=== PATIENT | female | born 2000 | race Caucasian/White ===

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

== ENCOUNTER 2020-03-21 13:03 | Outpatient (CLI) | payer OTHER ==
[2020-03-21 14:29] LABS: APPEARANCE,URINE CLOUDY; BILIRUBIN,URINE NEGATIVE (NEGATIVE); COLOR,URINE YELLOW; GLUCOSE, URINE NEGATIVE (NEGATIVE); KETONES,URINE NEGATIVE (NEGATIVE); LEUKOCYTE ESTERASE,URINE LARGE (NEGATIVE); NITRITE,URINE NEGATIVE (NEGATIVE); PROTEIN,URINE NEGATIVE (NEGATIVE); URINE SPECIFIC GRAVITY 1.011; UROBILINOGEN,URINE NEGATIVE mg/dL (<2.0)
[2020-03-21 14:46] LABS: URINE AMPHETAMINES SCREEN NEGATIVE; URINE BARBITURATES SCREEN NEGATIVE; URINE BENZODIAZEPINES SCREEN NEGATIVE; URINE COCAINE SCREEN NEGATIVE; URINE MARIJUANA (THC) SCREEN NEGATIVE; URINE METHADONE SCREEN NEGATIVE; URINE PHENCYCLIDINE SCREEN NEGATIVE
[2020-03-21 14:51] LABS: UR PRO/CREAT RATIO RESULT 0.2 mg/mg (0.0-0.2); URINE PROTEIN 13.6 mg/dL (<12)
[2020-03-21 15:05] LABS: ABSOLUTE BASOPHILS # (AUTO) 0.1 10^3/uL (0.0-0.2); ABSOLUTE EOSINOPHILS # (AUTO) 0.1 10^3/uL (0.0-0.6); ABSOLUTE LYMPHOCYTES (AUTO) 2.5 10^3/uL (0.5-4.7); ABSOLUTE MONOCYTES (AUTO) 1.1 10^3/uL (0.1-1.4); BASOPHILS % (AUTO) 0.7 % (0-2); EOSINOPHILS % (AUTO) 0.6 % (0-6); LYMPHOCYTES % (AUTO) 15.6 % (13-45); MEAN CORPUSCULAR HEMOGLOBIN 28.8 pg (27.0-33.4); MEAN CORPUSCULAR HGB CONC 34.3 g/dL (32.0-36.0); MEAN CORPUSCULAR VOLUME 84 fl (80-97); MONOCYTES % (AUTO) 6.9 % (3-13); PLATELET COUNT 273 10^3/uL (150-450); RED BLOOD COUNT 4.17 10^6/uL (3.72-5.28); RED CELL DISTRIBUTION WIDTH 13.3 % (11.5-14.0); SEGMENTED NEUTROPHILS % (AUTO) 76.2 % (42-78); TOTAL CELLS COUNTED % (AUTO) 100 %; WHITE BLOOD COUNT 15.8 10^3/uL (4.0-10.5)
[2020-03-21 15:21] LABS: ALBUMIN 3.6 g/dL (3.5-5.0); ALKALINE PHOSPHATASE 77 U/L (38-126); ANION GAP 8 (5-19); ASPARTATE AMINO TRANSFERASE 14 U/L (14-36); BILIRUBIN,DIRECT 0.2 mg/dL (0.0-0.4); BILIRUBIN,TOTAL 0.3 mg/dL (0.2-1.3); BLOOD UREA NITROGEN 6 mg/dL (7-20); CALCIUM 9.2 mg/dL (8.4-10.2); CARBON DIOXIDE 23 mmol/L (22-30); CHLORIDE 105 mmol/L (98-107); GLUCOSE 73 mg/dL (75-110); POTASSIUM 4.7 mmol/L (3.6-5.0); TOTAL PROTEIN 6.4 g/dL (6.3-8.2); URIC ACID 4.7 mg/dL (2.5-6.2)
== END 2020-03-21 16:25 | disposition home or self-care (01) ==
LOC: LC 13:03
PROVIDERS: ATTEND Obstetrics & Gynecology
DX: O16.2 Unspecified maternal hypertension, second trimester (principal); Z3A.22 22 weeks gestation of pregnancy
CPT/HCPCS: 36415; 80053; 80307; 81001; 82570; 83615; 84156; 84550; 85025

== ENCOUNTER 2020-04-12 14:04 | Outpatient (CLI) | payer OTHER ==
[2020-04-12 14:49] LABS: APPEARANCE,URINE TURBID; BILIRUBIN,URINE NEGATIVE (NEGATIVE); CALCIUM OXALATE CRYSTALS,URINE TOO NUMEROUS TO CNT /HPF; COLOR,URINE AMBER; GLUCOSE, URINE 50 mg/dL (NEGATIVE); KETONES,URINE TRACE mg/dL (NEGATIVE); LEUKOCYTE ESTERASE,URINE LARGE (NEGATIVE); NITRITE,URINE NEGATIVE (NEGATIVE); PROTEIN,URINE 100 mg/dL (NEGATIVE); URINE SPECIFIC GRAVITY 1.029
[2020-04-12 15:03] LABS: URINE AMPHETAMINES SCREEN NEGATIVE; URINE BARBITURATES SCREEN NEGATIVE; URINE BENZODIAZEPINES SCREEN NEGATIVE; URINE COCAINE SCREEN NEGATIVE; URINE MARIJUANA (THC) SCREEN NEGATIVE; URINE METHADONE SCREEN NEGATIVE; URINE PHENCYCLIDINE SCREEN NEGATIVE
[2020-04-12] MEDS ORDERED: NORMAL SALINE 1000 ML 1,000 ML IV PRN (15:20)
[2020-04-12] MEDS ORDERED: NITROFURANTOIN MONOHYD/M-CRYST 100 MG CAPSULE PO ONE (15:28)
[2020-04-12] MEDS ORDERED: CEFTRIAXONE 2 GM/D5W RTU 2 GM/50 ML RTUPB IV SCH (15:30)
[2020-04-12] MEDS ORDERED: NITROFURANTOIN MONOHYD/M-CRYST 100 MG CAPSULE ONE (16:23)
--- NOTE | 2020-04-12 17:51 | RADIOLOGY REPORT (SQ) ---
EXAM DESCRIPTION: U/S OB LIMITED IMAGES COMPLETED DATE/TIME: 04/12/2020 2:32 pm REASON FOR STUDY: abdominal cramping COMPARISON: None. TECHNIQUE: Limited transabdominal grayscale ultrasound for evaluation of specific requested obstetri cinthia parameters. LIMITATIONS: None. FINDINGS: CERVICAL LENGTH: At least 4.1 cm Closed. ALBA: 21.6 cm. FHR: 132 beats per minute. PRESENTATION: Cephalic. PLACENTA: The placenta has normal homogeneous appearance and normal thickness measuring about 3.5 cm in thickness. The retro placental vascularity is within normal limits. No retroplacental fluid or h ematoma. ANATOMY: Not assessed OTHER: No other significant findings. IMPRESSION: Live intrauterine . Trimester of : 25 weeks 2 days based on clinical dates. TECHNICAL DOCUMENTATION: JOB ID: [id number] 2010 [employer]- All Rights Reserved Reading location - IP/workstation name: [email or web address]
== END 2020-04-12 17:15 | disposition home or self-care (01) ==
LOC: LC 14:04
PROVIDERS: ATTEND Obstetrics & Gynecology
DX: O23.42 Unspecified infection of urinary tract in pregnancy, second trimester (principal); O99.282 Endocrine, nutritional and metabolic diseases complicating pregnancy, second trimester; E86.0 Dehydration; O09.522 Supervision of elderly multigravida, second trimester; Z3A.25 25 weeks gestation of pregnancy; Z88.0 Allergy status to penicillin
CPT/HCPCS: 59899; 81001; 80307; 76815; J8499; 87086

== ENCOUNTER 2020-06-11 13:54 | Observation (INO) | payer OTHER ==
[2020-06-11] MEDS ORDERED: RINGERS SOLUTION,LACTATED 1,000 ML IV PRN (14:12)
[2020-06-11] MEDS ORDERED: CEFTRIAXONE INJ 1000 MG VIAL IV ONE (14:12)
[2020-06-11] MEDS ORDERED: CEFTRIAXONE INJ 1000 MG VIAL ONE (14:17)
[2020-06-11] MEDS ORDERED: MORPHINE SULFATE 10 MG/ML INJ ONE (15:06)
[2020-06-11] MEDS ORDERED: MORPHINE SULFATE 10 MG/ML INJ IV ONE (15:08)
[2020-06-11 15:11] LABS: APPEARANCE,URINE CLOUDY; BILIRUBIN,URINE NEGATIVE (NEGATIVE); COLOR,URINE YELLOW; GLUCOSE, URINE NEGATIVE (NEGATIVE); KETONES,URINE TRACE mg/dL (NEGATIVE); LEUKOCYTE ESTERASE,URINE LARGE (NEGATIVE); NITRITE,URINE NEGATIVE (NEGATIVE); PROTEIN,URINE 30 mg/dL (NEGATIVE); URINE AMPHETAMINES SCREEN NEGATIVE; URINE BARBITURATES SCREEN NEGATIVE; URINE BENZODIAZEPINES SCREEN NEGATIVE; URINE COCAINE SCREEN NEGATIVE; URINE MARIJUANA (THC) SCREEN NEGATIVE; URINE METHADONE SCREEN NEGATIVE; URINE PHENCYCLIDINE SCREEN NEGATIVE; URINE SPECIFIC GRAVITY 1.016; UROBILINOGEN,URINE NEGATIVE mg/dL (<2.0)
[2020-06-11 15:16] LABS: ABSOLUTE LYMPHOCYTES (AUTO) 2.6 10^3/uL (0.5-4.7); ABSOLUTE MONOCYTES (AUTO) 1.3 10^3/uL (0.1-1.4); ABSOLUTE NEUT (AUTO) 15.1 10^3/uL (1.7-8.2); BASOPHILS % (AUTO) 0.1 % (0-2); EOSINOPHILS % (AUTO) 0.2 % (0-6); HEMATOCRIT 35.3 % (36.0-47.0); HEMOGLOBIN 11.6 g/dL (12.0-15.5); LYMPHOCYTES % (AUTO) 13.4 % (13-45); MEAN CORPUSCULAR HEMOGLOBIN 24.9 pg (27.0-33.4); MEAN CORPUSCULAR HGB CONC 32.7 g/dL (32.0-36.0); MEAN CORPUSCULAR VOLUME 76 fl (80-97); PLATELET COUNT 244 10^3/uL (150-450); RED BLOOD COUNT 4.64 10^6/uL (3.72-5.28); RED CELL DISTRIBUTION WIDTH 17.1 % (11.5-14.0); SEGMENTED NEUTROPHILS % (AUTO) 79.3 % (42-78); TOTAL CELLS COUNTED % (AUTO) 100 %; WHITE BLOOD COUNT 19.1 10^3/uL (4.0-10.5)
[2020-06-11 15:41] LABS: ALBUMIN 3.4 g/dL (3.5-5.0); ALKALINE PHOSPHATASE 136 U/L (38-126); ANION GAP 9 (5-19); ASPARTATE AMINO TRANSFERASE 15 U/L (14-36); BILIRUBIN,TOTAL 0.2 mg/dL (0.2-1.3); BLOOD UREA NITROGEN 8 mg/dL (7-20); CALCIUM 8.9 mg/dL (8.4-10.2); CARBON DIOXIDE 20 mmol/L (22-30); CHLORIDE 105 mmol/L (98-107); GLUCOSE 83 mg/dL (75-110); POTASSIUM 4.3 mmol/L (3.6-5.0); TOTAL PROTEIN 6.4 g/dL (6.3-8.2)
[2020-06-11] MEDS ORDERED: OXYCODONE-ACETAMINOPHEN 5-325 MG TABLET ONE (16:02)
[2020-06-11] MEDS: OXYCODONE-ACETAMINOPHEN 5-325 MG TABLET PO PRN ×2 (16:10→20:28)
[2020-06-11] MEDS ORDERED: ONDANSETRON HCL INJ/PF 4 MG/2 ML SDV ONE (16:47)
[2020-06-11] MEDS: RINGERS SOLUTION,LACTATED 1,000 ML IV PRN (16:53)
--- NOTE | 2020-06-11 16:54 | RADIOLOGY REPORT (SQ) ---
EXAM DESCRIPTION: U/S RETROPERITON (RENAL/AORTA) IMAGES COMPLETED DATE/TIME: 06/11/2020 4:10 pm REASON FOR STUDY: Low back pain radiating to ribs. COMPARISON: None. TECHNIQUE: Dynamic and static grayscale images acquired of the kidneys and bladder and recorded on P ACS. Additional selected color Doppler and spectral images recorded. LIMITATIONS: None. FINDINGS: RIGHT KIDNEY: Normal size. Normal echogenicity. No solid or suspicious masses. No calcifi cations. LEFT KIDNEY: Normal size. Normal echogenicity. No solid or suspicious masses. No calcifications. BLADDER: No masses. OTHER FINDINGS: Mild prominence of the renal pelves and proximal ureters is not entirely unexpected i n the setting of 33 week gestation. Focused evaluation of the uterine contents demonstrates a single live intrauterine gestation with heart motion measured on M-mode sonography at 0100 hours 55 beats per minute. IMPRESSION: Essentially normal renal ultrasound in the setting of 33 week gestation. TECHNICAL DOCUMENTATION: JOB ID: [id number] 2010 [employer]- All Rights Reserved Reading location - IP/workstation name: [email or web address]
[2020-06-12] MEDS: ONDANSETRON HCL INJ/PF 4 MG/2 ML SDV IV PRN ×3 (00:46→20:54)
[2020-06-12] MEDS: RINGERS SOLUTION,LACTATED 1,000 ML IV PRN (00:46)
[2020-06-12] MEDS: ACETAMINOPHEN 325 MG TABLET PO PRN ×3 (00:50→17:04)
[2020-06-12] MEDS: CEFTRIAXONE 1 GM/D5W RTU 1 GM/50 ML RTUPB IV SCH ×3 (02:33→23:23)
[2020-06-12] MEDS ORDERED: CEFTRIAXONE INJ 1000 MG VIAL IV SCH (03:00)
[2020-06-12] MEDS ORDERED: LEVOTHYROXINE SODIUM 0.05 MG TABLET ONE (05:06)
[2020-06-12] MEDS ORDERED: LEVOTHYROXINE SODIUM 0.05 MG TABLET PO ONE (06:00)
[2020-06-12] MEDS ORDERED: SERTRALINE HCL 50 MG TABLET PO ONE (10:00)
[2020-06-12] MEDS ORDERED: HYDROMORPHONE HCL INJ/PF 2 MG/ML AMPULE IV ONE ×2 (10:53→20:00)
--- NOTE | 2020-06-12 11:01 | PDOC PROGRESS REPORT ---
Subjective Date:: 06/12/20 Subjective:: She continues to report pain in the right flank. Reason For Visit: Physical Exam - Physical Exam Vital Signs: Temp Pulse Resp BP Pulse Ox 97.9 F 71 17 118/52 L 100 06/12/20 07:33 06/12/20 07:33 06/12/20 07:33 06/12/20 07:33 06/12/20 07:33 Intake & Output 06/11/20 06/12/20 06/13/20 06:59 06:59 06:59 Intake Total 2535 Output Total 1250 300 Balance 1285 -300 Weight 96.9 kg General appearance: PRESENT: mild distress Head exam: PRESENT: atraumatic Pulses: PRESENT: normal dorsalis pedis pul, +2 pedal pulses bilateral Vascular exam: PRESENT: normal capillary refill GI/Abdominal exam: PRESENT: other - gravid Extremities exam: PRESENT: full ROM. ABSENT: calf tenderness, clubbing, pedal edema Neurological exam: PRESENT: alert, awake, oriented to person, oriented to place, oriented to time, oriented to situation, CN II-XII grossly intact. ABSENT: motor sensory deficit Result Laboratory Results: 06/11/20 15:02 06/11/20 15:02 06/11/20 06/11/20 06/11/20 14:07 15:02 15:02 WBC 19.1 H RBC 4.64 Hgb 11.6 L Hct 35.3 L MCV 76 L MCH 24.9 L MCHC 32.7 RDW 17.1 H Plt Count 244 Seg Neutrophils % 79.3 H Sodium 134.1 L Potassium 4.3 Chloride 105 Carbon Dioxide 20 L Anion Gap 9 BUN 8 Creatinine 0.55 Est GFR ( Amer) > 60 Glucose 83 Calcium 8.9 Total Bilirubin 0.2 AST 15 Alkaline Phosphatase 136 H Total Protein 6.4 Albumin 3.4 L Urine Color YELLOW Urine Appearance CLOUDY Urine pH 7.0 Ur Specific [place] 1.016 Urine Protein 30 H Urine Glucose (UA) NEGATIVE Urine Ketones TRACE H Urine Blood NEGATIVE Urine Nitrite NEGATIVE Ur Leukocyte Esterase LARGE H Urine WBC (Auto) 52 Urine RBC (Auto) 2 Impressions: Renal Ultrasound 06/11/20 15:05 IMPRESSION: Essentially normal renal ultrasound in the setting of 33 week gestation. Assessment & Plan - Diagnosis (1) Acute cystitis during in third trimester Is this a current diagnosis for this admission?: Yes (2) Cystitis during in second trimester, antepartum Is this a current diagnosis for this admission?: No - Time Time Spent with patient: 15-24 minutes Medications reviewed and adjusted accordingly: Yes Anticipated discharge: Home Anticipated DC Timeframe: within 72 hours - Plan Summary Plan Summary: Plan to continue abx and IV fluids. Urine culture ordered.
[2020-06-12] MEDS: ACETAMINOPHEN WITH CODEINE #3 TABLET PO PRN (23:51)
[2020-06-13] MEDS: RINGERS SOLUTION,LACTATED 1,000 ML IV PRN ×2 (02:57→22:08)
[2020-06-13] MEDS: ACETAMINOPHEN WITH CODEINE #3 TABLET PO PRN ×4 (06:37→22:54)
[2020-06-13] MEDS: ONDANSETRON HCL INJ/PF 4 MG/2 ML SDV IV PRN (06:38)
[2020-06-13 09:01] LABS: ABSOLUTE LYMPHOCYTES (AUTO) 1.8 10^3/uL (0.5-4.7); ABSOLUTE MONOCYTES (AUTO) 1.7 10^3/uL (0.1-1.4); ABSOLUTE NEUT (AUTO) 12.5 10^3/uL (1.7-8.2); BASOPHILS % (AUTO) 0.2 % (0-2); EOSINOPHILS % (AUTO) 0.1 % (0-6); HEMATOCRIT 31.5 % (36.0-47.0); HEMOGLOBIN 10.3 g/dL (12.0-15.5); LYMPHOCYTES % (AUTO) 11.1 % (13-45); MEAN CORPUSCULAR HEMOGLOBIN 24.9 pg (27.0-33.4); MEAN CORPUSCULAR HGB CONC 32.7 g/dL (32.0-36.0); MEAN CORPUSCULAR VOLUME 76 fl (80-97); MONOCYTES % (AUTO) 10.6 % (3-13); PLATELET COUNT 207 10^3/uL (150-450); RED BLOOD COUNT 4.14 10^6/uL (3.72-5.28); RED CELL DISTRIBUTION WIDTH 17.1 % (11.5-14.0); TOTAL CELLS COUNTED % (AUTO) 100 %
[2020-06-13] MEDS: CEFTRIAXONE 1 GM/D5W RTU 1 GM/50 ML RTUPB IV SCH ×2 (09:06→22:15)
[2020-06-13] MEDS ORDERED: HYDROMORPHONE HCL INJ/PF 2 MG/ML AMPULE IV ONE (12:30)
[2020-06-13] MEDS ORDERED: HYDROMORPHONE HCL INJ/PF 2 MG/ML AMPULE ONE (14:40)
[2020-06-14] MEDS: ACETAMINOPHEN WITH CODEINE #3 TABLET PO PRN ×2 (02:58→07:41)
--- NOTE | 2020-06-14 07:35 | PDOC PROGRESS REPORT ---
Subjective Date:: 06/13/20 Subjective:: Late entry for Patient continues to have Right CVA tenderness. States pain radiates around abdomen. Voiding without issue. Denies blood in urine today or passing stones. Denies fever, chills, nausea or vomiting Reason For Visit: Physical Exam - Physical Exam Vital Signs: Temp Pulse Resp BP Pulse Ox 98.3 F 100 16 117/76 98 06/14/20 03:05 06/14/20 03:05 06/14/20 03:05 06/14/20 03:05 06/14/20 03:05 Intake & Output 06/13/20 06/14/20 06/15/20 06:59 06:59 06:59 Intake Total 1999 1700 Output Total 300 3650 Balance 1700 -1950 General appearance: PRESENT: no acute distress, cooperative Respiratory exam: PRESENT: clear to auscultation bradly Cardiovascular exam: PRESENT: RRR, +S1, +S2 GI/Abdominal exam: PRESENT: soft - Right CVA tenderness Extremities exam: PRESENT: full ROM. ABSENT: calf tenderness, clubbing, pedal edema Neurological exam: PRESENT: alert, awake, oriented to person, oriented to place, oriented to time, oriented to situation, CN II-XII grossly intact. ABSENT: motor sensory deficit Psychiatric exam: PRESENT: appropriate affect, normal mood. ABSENT: homicidal ideation, suicidal ideation Skin exam: PRESENT: dry, intact, warm. ABSENT: cyanosis, rash Result Laboratory Results: 06/13/20 08:45 06/11/20 15:02 06/13/20 08:45 WBC 16.0 H RBC 4.14 Hgb 10.3 L Hct 31.5 L MCV 76 L MCH 24.9 L MCHC 32.7 RDW 17.1 H Plt Count 207 Seg Neutrophils % 78.0 06/11/20 14:07 Clean Catch Midstream Urine Culture - Final Mixed Urogenital Jessica Impressions: Renal Ultrasound 06/11/20 15:05 IMPRESSION: Essentially normal renal ultrasound in the setting of 33 week gestation. Assessment & Plan - Diagnosis (1) Pyelonephritis of right kidney Is this a current diagnosis for this admission?: Yes - Time Time Spent with patient: Less than 15 minutes Anticipated discharge: Home Anticipated DC Timeframe: within 36 hours - 19 yo with right pyelonephritis in -VSS, afebrile -Urine culture not back yet -Renal US negative -Still with right CVA tenderness -Discussed that need culture results and needs to have no CVA tenderness on exam for discharge. -Good FHT. Continue daily. -Pain medication PRN
[2020-06-14] MEDS: RINGERS SOLUTION,LACTATED 1,000 ML IV PRN (07:42)
--- NOTE | 2020-06-14 08:59 | PDOC DISCHARGE SUMMARY ---
Impression - Admit/DC Date/PCP Admission Date/Primary Care Provider: 06/11/20 16:03 JODY THOMAS MD Discharge Date: 06/14/20 - Discharge Diagnosis (1) Acute cystitis during in third trimester Is this a current diagnosis for this admission?: Yes (2) Pyelonephritis of right kidney Is this a current diagnosis for this admission?: Yes (3) Cystitis during in second trimester, antepartum Is this a current diagnosis for this admission?: Yes (4) Dehydration Is this a current diagnosis for this admission?: Yes - Additional Information Resuscitation Status: Full Code Discharge Diet: As Tolerated Discharge Activity: Activity As Tolerated Referrals: JODY THOMAS MD [Primary Care Provider] - Home Medications: Ferrous Gluconate [Iron] 256 mg PO DAILY 03/21/20 95/Iron Fum/Folic/Dha [ + Dha Combo Pack] 1 each PO DAILY 03/21/20 Sertraline HCl [Zoloft 50 mg Tablet] 50 mg PO DAILY 03/21/20 Vit B Comp C 19/Folic Acid/D3 [Nephronex-Sl Tablet] 1 each PO DAILY 03/21/20 Vit C/Ascorb Sod/Multivit-Min [Emergen-C 500 mg Chewable Tab] 500 mg PO DAILY 03/21/20 Levothyroxine Sodium [Synthroid 0.05 mg Tablet] 1 tab PO DAILY 06/11/20 History of Present Illiness History of Present Illness: BEAU العلي is a 19 year old female admitted with pyelonphritis Hospital Course Hospital Course: placed on IV antibiotics and has been afebrile and no CVA tenderness today. pt feels much better and wants to go home Physical Exam - Physical Exam Vital Signs: Temp Pulse Resp BP Pulse Ox 98.3 F 100 16 117/76 98 06/14/20 03:05 06/14/20 03:05 06/14/20 03:05 06/14/20 03:05 06/14/20 03:05 Intake & Output 06/13/20 06/14/20 06/15/20 06:59 06:59 06:59 Intake Total 1999 2700 Output Total 300 3650 Balance 1700 -950 General appearance: PRESENT: no acute distress Respiratory exam: PRESENT: clear to auscultation bradly Cardiovascular exam: PRESENT: RRR Additional comments: no cva tenderness Results Laboratory Results: WBC 16.0 10^3/uL (4.0-10.5) H 06/13/20 08:45 RBC 4.14 10^6/uL (3.72-5.28) 06/13/20 08:45 Hgb 10.3 g/dL (12.0-15.5) L 06/13/20 08:45 Hct 31.5 % (36.0-47.0) L 06/13/20 08:45 MCV 76 fl (80-97) L 06/13/20 08:45 MCH 24.9 pg (27.0-33.4) L 06/13/20 08:45 MCHC 32.7 g/dL (32.0-36.0) 06/13/20 08:45 RDW 17.1 % (11.5-14.0) H 06/13/20 08:45 Plt Count 207 10^3/uL (150-450) 06/13/20 08:45 Lymph % (Auto) 11.1 % (13-45) L 06/13/20 08:45 [place] % (Auto) 10.6 % (3-13) 06/13/20 08:45 Eos % (Auto) 0.1 % (0-6) 06/13/20 08:45 Baso % (Auto) 0.2 % (0-2) 06/13/20 08:45 Absolute Neuts (auto) 12.5 10^3/uL (1.7-8.2) H 06/13/20 08:45 Absolute Lymphs (auto) 1.8 10^3/uL (0.5-4.7) 06/13/20 08:45 Absolute Monos (auto) 1.7 10^3/uL (0.1-1.4) H 06/13/20 08:45 Absolute Eos (auto) 0.0 10^3/uL (0.0-0.6) 06/13/20 08:45 Absolute Basos (auto) 0.0 10^3/uL (0.0-0.2) 06/13/20 08:45 Seg Neutrophils % 78.0 % (42-78) 06/13/20 08:45 Sodium 134.1 mmol/L (137-145) L 06/11/20 15:02 Potassium 4.3 mmol/L (3.6-5.0) 06/11/20 15:02 Chloride 105 mmol/L (98-107) 06/11/20 15:02 Carbon Dioxide 20 mmol/L (22-30) L 06/11/20 15:02 Anion Gap 9 (5-19) 06/11/20 15:02 BUN 8 mg/dL (7-20) 06/11/20 15:02 Creatinine 0.55 mg/dL (0.52-1.25) 06/11/20 15:02 Est GFR ( Amer) > 60 (>60) 06/11/20 15:02 Est GFR (MDRD) Non-Af > 60 (>60) 06/11/20 15:02 Glucose 83 mg/dL (75-110) 06/11/20 15:02 Calcium 8.9 mg/dL (8.4-10.2) 06/11/20 15:02 Total Bilirubin 0.2 mg/dL (0.2-1.3) 06/11/20 15:02 Direct Bilirubin 0.0 mg/dL (0.0-0.4) 06/11/20 15:02 Neonat Total Bilirubin Not Reportable 06/11/20 15:02 Neonat Direct Bilirubin Not Reportable 06/11/20 15:02 Neonat Indirect Bili Not Reportable 06/11/20 15:02 AST 15 U/L (14-36) 06/11/20 15:02 ALT 9 U/L (<35) 06/11/20 15:02 Alkaline Phosphatase 136 U/L (38-126) H 06/11/20 15:02 Total Protein 6.4 g/dL (6.3-8.2) 06/11/20 15:02 Albumin 3.4 g/dL (3.5-5.0) L 06/11/20 15:02 Urine Color YELLOW 06/11/20 14:07 Urine Appearance CLOUDY 06/11/20 14:07 Urine pH 7.0 (5.0-9.0) 06/11/20 14:07 Ur Specific [place] 1.016 06/11/20 14:07 Urine Protein 30 mg/dL (NEGATIVE) H 06/11/20 14:07 Urine Glucose (UA) NEGATIVE mg/dL (NEGATIVE) 06/11/20 14:07 Urine Ketones TRACE mg/dL (NEGATIVE) H 06/11/20 14:07 Urine Blood NEGATIVE (NEGATIVE) 06/11/20 14:07 Urine Nitrite NEGATIVE (NEGATIVE) 06/11/20 14:07 Urine Bilirubin NEGATIVE (NEGATIVE) 06/11/20 14:07 Urine Urobilinogen NEGATIVE mg/dL (<2.0) 06/11/20 14:07 Ur Leukocyte Esterase LARGE (NEGATIVE) H 06/11/20 14:07 Urine WBC (Auto) 52 /HPF 06/11/20 14:07 Urine RBC (Auto) 2 /HPF 06/11/20 14:07 Urine Bacteria (Auto) 1+ /HPF 06/11/20 14:07 Squamous Epi Cells Auto 26 /HPF 06/11/20 14:07 Urine Mucus (Auto) FEW /LPF 06/11/20 14:07 Urine Ascorbic Acid NEGATIVE (NEGATIVE) 06/11/20 14:07 Urine Opiates Screen NEGATIVE 06/11/20 14:07 Urine Methadone Screen NEGATIVE 06/11/20 14:07 Ur Barbiturates Screen NEGATIVE 06/11/20 14:07 Ur Phencyclidine Scrn NEGATIVE 06/11/20 14:07 Ur Amphetamines Screen NEGATIVE 06/11/20 14:07 U Benzodiazepines Scrn NEGATIVE 06/11/20 14:07 Urine Cocaine Screen NEGATIVE 06/11/20 14:07 U Marijuana (THC) Screen NEGATIVE 06/11/20 14:07 Impressions: Renal Ultrasound 06/11/20 15:05 IMPRESSION: Essentially normal renal ultrasound in the setting of 33 week gestation. Plan Health Concerns: Plan of Treatment: po antibiotics f/u Friday or prn Stroke Is this a Stroke Patient?: No Acute Heart Failure Is this a Heart Failure Patient?: No
[2020-06-14 09:01] LABS: ABSOLUTE BASOPHILS # (AUTO) 0.1 10^3/uL (0.0-0.2); ABSOLUTE EOSINOPHILS # (AUTO) 0.1 10^3/uL (0.0-0.6); ABSOLUTE LYMPHOCYTES (AUTO) 2.3 10^3/uL (0.5-4.7); ABSOLUTE MONOCYTES (AUTO) 1.6 10^3/uL (0.1-1.4); BASOPHILS % (AUTO) 0.5 % (0-2); EOSINOPHILS % (AUTO) 0.4 % (0-6); HEMATOCRIT 30.5 % (36.0-47.0); HEMOGLOBIN 10.1 g/dL (12.0-15.5); LYMPHOCYTES % (AUTO) 16.3 % (13-45); MEAN CORPUSCULAR HEMOGLOBIN 25.1 pg (27.0-33.4); MEAN CORPUSCULAR VOLUME 76 fl (80-97); MONOCYTES % (AUTO) 11.4 % (3-13); PLATELET COUNT 201 10^3/uL (150-450); RED BLOOD COUNT 4.01 10^6/uL (3.72-5.28); RED CELL DISTRIBUTION WIDTH 17.4 % (11.5-14.0); SEGMENTED NEUTROPHILS % (AUTO) 71.4 % (42-78); TOTAL CELLS COUNTED % (AUTO) 100 %
[2020-06-14] MEDS: CEFTRIAXONE 1 GM/D5W RTU 1 GM/50 ML RTUPB IV SCH (09:21)
[2020-06-14 09:27] VITALS: BP 127/64
--- NOTE | 2020-06-17 21:59 | Admission Physical ---
Datetime Report Generated by CPN: 06/17/2020 21:59 CURRENT ADMISSION Chief Complaint: Other Chief Complaint Other: right back and flank pain Indication for Induction: Not Applicable Admit Impression- Other: pyelonephritis Admit Plan- Other: admit and transfer to [address] ALLERGIES Medication Allergies: Yes Medication Allergies: Penicillins/Hives (04/12/2020) Latex: No Latex Allergies OBSTETRICAL HISTORY EDC: 07/24/2020 00:00 : 2 Para: 1 Term: 1 : 0 SAB: 0 IAB: 0 Ectopic: 0 Livin Cesareans: 0 Multiple Births: 0 Gestational Diabetes: No Rh Sensitization: No Incompetent Cervix: No JEAN: No Infertility: No ART Treatment: No Uterine Anomaly: No IUGR: No Hx Previous C/S: No Macrosomia: No Hx Loss/Stillborn: No PIH: Yes Hx : No Placenta Previa/Abruption: No Depression/PP Depression: Yes PTL/PROM: No Post Hemorrhage: No Current Procedures: Ultrasound; NST Obstetrical History Comments: G1- 37 weeks IOL pre-e G2- current - circumvallate placenta SEE RECORDS Alcohol: No Marijuana : No Cocaine: No Other Illicit Drugs: No Cigarettes: Never Smoker. [id number] MEDICAL HISTORY Diabetes: No Blood Transfusion: No Pulmonary Disease (Asthma, TB): Yes Breast Disease: No Hypertension: Yes Tip Stretcher Surgery: No Heart Disease: No Hosp/Surgery: Yes Autoimmune Disorder: No Anesthetic Complications: No Kidney Disease: Yes Abnormal Pap Smear: No Neuro/Epilepsy: No Psychiatric Disorders: No Other Medical Diseases: No Hepatitis/Liver Disease: No Significant Family History: No Varicosities/Phlebitis: No Trauma/Violence : No Thyroid Dysfunction: Yes Medical History Comments: hx pre-e g1, UTIs, asthma, hypothyroidism, on zoloft INFECTIOUS HISTORY Gonorrhea: No Genital Herpes: No Chlamydia: No Tuberculosis: No Syphilis: No Hepatitis: No HIV/AIDS Exposure: No Rash or Viral Illness: No HPV: No PHYSICAL EXAM General: Normal HEENT: Normal Neurologic: Normal Thyroid: Normal Heart: Normal Lungs: Normal Breast: Deferred Back: Normal Abdomen: Normal Genitourinary Exam: Normal Extremities: Normal DTRs: Normal Pelvic Type: Adequate Physical Exam Comments: right cva tenderness Vital Signs: Reviewed FETUS A EGA: 33.6 PLANS FOR LABOR AND DELIVERY Labor and Delivery: None Pain Management: Natural; Medications; Epidural Feeding Preference: Breast INFORMED CONSENT Signature: with User ID: [email or web address]
== END 2020-06-14 12:33 | disposition home or self-care (01) ==
LOC: LC 13:54 → LR 16:03 → 2S 17:00
PROVIDERS: ADMIT Obstetrics & Gynecology Gynecology; ATTEND Obstetrics & Gynecology Gynecology
DX: O23.03 Infections of kidney in pregnancy, third trimester (principal); O23.13 Infections of bladder in pregnancy, third trimester; O26.893 Other specified pregnancy related conditions, third trimester; E86.0 Dehydration; O43.113 Circumvallate placenta, third trimester; Z3A.33 33 weeks gestation of pregnancy; Z87.59 Personal history of other complications of pregnancy, childbirth and the puerperium; Z87.440 Personal history of urinary (tract) infections
CPT/HCPCS: 59025; 94760; 36415 ×3; 87086; 85025 ×3; 80053; 81001; 80307; 76770; G0378 ×5; J2270; J1170 ×2; J0696 ×4; J2405 ×3; J7120 ×3

== ENCOUNTER 2020-06-17 22:14 | Outpatient (CLI) | payer OTHER ==
[2020-06-17 22:42] LABS: APPEARANCE,URINE CLEAR; BILIRUBIN,URINE NEGATIVE (NEGATIVE); COLOR,URINE STRAW; GLUCOSE, URINE NEGATIVE (NEGATIVE); KETONES,URINE NEGATIVE (NEGATIVE); LEUKOCYTE ESTERASE,URINE TRACE (NEGATIVE); NITRITE,URINE NEGATIVE (NEGATIVE); PROTEIN,URINE NEGATIVE (NEGATIVE); URINE SPECIFIC GRAVITY 1.004; UROBILINOGEN,URINE NEGATIVE mg/dL (<2.0)
[2020-06-17 23:00] LABS: URINE AMPHETAMINES SCREEN NEGATIVE; URINE BARBITURATES SCREEN NEGATIVE; URINE BENZODIAZEPINES SCREEN NEGATIVE; URINE COCAINE SCREEN NEGATIVE; URINE MARIJUANA (THC) SCREEN NEGATIVE; URINE METHADONE SCREEN NEGATIVE; URINE PHENCYCLIDINE SCREEN NEGATIVE
--- NOTE | 2020-06-17 23:28 | Non Stress Test Report ---
Non Stress Test Datetime Report Generated by CPN: 06/17/2020 23:28 DEMOGRAPHIC Test Number: 1 EGA NST: 34.5 EGA NST: 33.6 INDICATION Indication for Study (NST) Other: Pyelonephritis VITAL SIGNS Temperature - NST: 98.7 RESP - NST: 16 MONITORING Monitor Explained: Monitor Explained; Test Explained; Patient Verbalized Understanding Monitor Explained: Monitor Explained; Test Explained; Patient Verbalized Understanding Time on Monitor: 06/17/2020 22:27 Time on Monitor: 06/11/2020 14:40 Time off Monitor: 06/17/2020 23:19 Time off Monitor: 06/11/2020 15:00 NST Duration: 52 NST Duration: 20 NST INTERVENTIONS NST Interventions: PO Hydration; Reposition Patient NST Interventions: PO Hydration; IV Fluids Physician Notified NST: Dr Trotter Physician Notified NST: Dr. Reddb BABY A: [id number] BABY A Movement : Present Movement : Present Contraction Frequency : 0 Contraction Frequency : None FHR Baseline : 150 FHR Baseline : 130 Accelerations : 15X15 Accelerations : 15X15 Decelerations : None Decelerations : None Variability : Moderate 6-25bpm Variability : Moderate 6-25bpm NST Review: Meets Criteria for Reactive NST NST Review and Verified By : [place] SILVA Results: Reactive NST REPORT Report Trigger: Send Report
== END 2020-06-17 23:32 | disposition home or self-care (01) ==
LOC: LC 22:14
PROVIDERS: ATTEND Obstetrics & Gynecology
DX: O36.8130 Decreased fetal movements, third trimester, not applicable or unspecified (principal); O23.03 Infections of kidney in pregnancy, third trimester; Z3A.34 34 weeks gestation of pregnancy; Z88.0 Allergy status to penicillin
CPT/HCPCS: 59025; 80307; 81001

== ENCOUNTER 2020-06-19 01:42 | Outpatient (CLI) | payer OTHER ==
--- NOTE | 2020-06-19 01:49 | L&D Progress Notes ---
PROGRESS NOTES Datetime Report Generated by CPN: 06/19/2020 01:49 PROGRESS NOTE Comment: She presents for a labor check for nausea and cramping. We will treat with IV fluids and antiemetics. I expect she will be able to go home afterwards. SIGNATURE SIGNATURE: [id number];[id number];[id number] Signature: with User ID: [email or web address]
[2020-06-19] MEDS ORDERED: RINGERS SOLUTION,LACTATED 1,000 ML IV PRN (01:51)
[2020-06-19] MEDS ORDERED: PROMETHAZINE HCL INJ 25 MG/1 ML VIAL ONE (01:52)
[2020-06-19] MEDS ORDERED: PROMETHAZINE HCL INJ 25 MG/1 ML VIAL IV ONE (01:52)
[2020-06-19 02:45] LABS: APPEARANCE,URINE CLEAR; BILIRUBIN,URINE NEGATIVE (NEGATIVE); COLOR,URINE YELLOW; GLUCOSE, URINE NEGATIVE (NEGATIVE); KETONES,URINE NEGATIVE (NEGATIVE); LEUKOCYTE ESTERASE,URINE SMALL (NEGATIVE); NITRITE,URINE NEGATIVE (NEGATIVE); PROTEIN,URINE NEGATIVE (NEGATIVE); UROBILINOGEN,URINE NEGATIVE mg/dL (<2.0)
[2020-06-19 03:01] LABS: URINE AMPHETAMINES SCREEN NEGATIVE; URINE BARBITURATES SCREEN NEGATIVE; URINE BENZODIAZEPINES SCREEN NEGATIVE; URINE COCAINE SCREEN NEGATIVE; URINE MARIJUANA (THC) SCREEN NEGATIVE; URINE METHADONE SCREEN NEGATIVE; URINE PHENCYCLIDINE SCREEN NEGATIVE
--- NOTE | 2020-06-19 03:10 | Non Stress Test Report ---
Non Stress Test Datetime Report Generated by CPN: 06/19/2020 03:10 DEMOGRAPHIC EGA NST: 35.0 INDICATION Indication for Study (NST) Other: nausea/vomitting/diarrhea VITAL SIGNS RESP - NST: 16 MONITORING Monitor Explained: Monitor Explained; Test Explained; Patient Verbalized Understanding Time on Monitor: 06/19/2020 02:00 Time off Monitor: 06/19/2020 03:09 NST Duration: 69 NST INTERVENTIONS NST Interventions: PO Hydration; Reposition Patient Physician Notified NST: Dr. Trotter BABY A: [id number] BABY A Movement : Present Contraction Frequency : none noted FHR Baseline : 120 Accelerations : 15X15 Decelerations : None Variability : Moderate 6-25bpm NST Review: Meets Criteria for Reactive NST NST Review and Verified By : Chemo Qiu RN NST Results: Reactive NST REPORT Report Trigger: Send Report
== END 2020-06-19 03:17 | disposition home or self-care (01) ==
LOC: LC 01:42
PROVIDERS: ATTEND Obstetrics & Gynecology
DX: O36.8130 Decreased fetal movements, third trimester, not applicable or unspecified (principal); O99.283 Endocrine, nutritional and metabolic diseases complicating pregnancy, third trimester; E86.0 Dehydration; O21.2 Late vomiting of pregnancy; E03.9 Hypothyroidism, unspecified; R10.9 Unspecified abdominal pain; Z3A.35 35 weeks gestation of pregnancy; Z88.0 Allergy status to penicillin
CPT/HCPCS: 59025; 81001; 80307; J2550

== ENCOUNTER 2020-07-02 21:03 | Outpatient (CLI) | payer OTHER ==
[2020-07-02 21:44] LABS: APPEARANCE,URINE CLOUDY; BILIRUBIN,URINE NEGATIVE (NEGATIVE); COLOR,URINE AMBER; GLUCOSE, URINE NEGATIVE (NEGATIVE); KETONES,URINE NEGATIVE (NEGATIVE); LEUKOCYTE ESTERASE,URINE LARGE (NEGATIVE); NITRITE,URINE NEGATIVE (NEGATIVE); PROTEIN,URINE 100 mg/dL (NEGATIVE); URINE SPECIFIC GRAVITY 1.021; UROBILINOGEN,URINE NEGATIVE mg/dL (<2.0)
--- NOTE | 2020-07-02 22:08 | Non Stress Test Report ---
Non Stress Test Datetime Report Generated by CPN: 07/02/2020 22:08 DEMOGRAPHIC EGA NST: 36.6 INDICATION Indication for Study (NST) Other: LC VITAL SIGNS Temperature - NST: 99.1 Pulse - NST: 96 RESP - NST: 18 NBPSYS NST: 121 NBPDIA NST: 76 MONITORING Monitor Explained: Monitor Explained; Test Explained; Patient Verbalized Understanding Time on Monitor: 07/02/2020 21:23 Time off Monitor: 07/02/2020 21:55 NST Duration: 32 NST INTERVENTIONS NST Interventions: PO Hydration Physician Notified NST: Dr. [place] BABY A: [id number] BABY A Movement : Present Contraction Frequency : Rare FHR Baseline : 150 Accelerations : 15X15 Decelerations : None Variability : Moderate 6-25bpm NST Review: Meets Criteria for Reactive NST NST Review and Verified By : Christin Zuñiga RN NST Results: Reactive NST REPORT Report Trigger: Send Report
[2020-07-02 22:18] LABS: URINE AMPHETAMINES SCREEN NEGATIVE; URINE BARBITURATES SCREEN NEGATIVE; URINE BENZODIAZEPINES SCREEN NEGATIVE; URINE COCAINE SCREEN NEGATIVE; URINE MARIJUANA (THC) SCREEN NEGATIVE; URINE METHADONE SCREEN NEGATIVE; URINE PHENCYCLIDINE SCREEN NEGATIVE
== END 2020-07-02 22:08 | disposition home or self-care (01) ==
LOC: LC 21:03
PROVIDERS: ATTEND Obstetrics & Gynecology
DX: O47.03 False labor before 37 completed weeks of gestation, third trimester (principal); Z3A.36 36 weeks gestation of pregnancy
CPT/HCPCS: 59025; 80307; 81005; 84112

== ENCOUNTER 2020-07-11 15:05 | Outpatient (CLI) | payer OTHER | END 2020-07-11 15:55 | disposition home or self-care (01) | LOC: LC 15:05 | PROVIDERS: ATTEND Obstetrics & Gynecology Gynecology | DX: Z34.93 Encounter for supervision of normal pregnancy, unspecified, third trimester (principal) | CPT/HCPCS: 59025 ==